=== PATIENT | female | born 1955 | race Asian ===

== ENCOUNTER 2021-01-20 13:16 | Day surgery (SDC) | payer BC ==
[2021-01-17 15:32] VITALS: BMI 23.1
[2021-01-20] MEDS ORDERED: Lidocaine 1% PF 5 ML VIAL ONE (13:40)
[2021-01-20] MEDS ORDERED: Sodium Bicarbonate 2.5 MEQ/5 ML VIAL ONE (13:40)
[2021-01-20 14:21] VITALS: BP 105/48; TEMP 97.6
== END 2021-01-20 14:52 | disposition home or self-care (01) ==
LOC: ULT 13:16 → EDSTATUS 14:00 → ULT 14:52
PROVIDERS: ATTEND Otolaryngology Otolaryngic Allergy
PROC: 0G9G3ZX Drainage of Left Thyroid Gland Lobe, Percutaneous Approach, Diagnostic (ICD-10-PCS; principal; 2021-01-20)
DX: E04.1 Nontoxic single thyroid nodule (principal); Z79.82 Long term (current) use of aspirin; Z79.899 Other long term (current) drug therapy
CPT/HCPCS: 60100; 76942; 88173